=== PATIENT | female | born 1980 | race Caucasian/White ===

== ENCOUNTER 2017-08-31 10:37 | Emergency (ER) | payer OTHER ==
[~2017-08-31] VITALS: Ht 165.1 cm; Wt 115.9 kg
[2017-08-31] MEDS ORDERED: DIVA500T35 PO (11:35)
[2017-08-31] MEDS ORDERED: SERT50TA12 PO (11:35)
[2017-08-31] MEDS ORDERED: GABA-531 PO (11:35)
[2017-08-31 12:20] LABS: BASOPHILS % (AUTO) 0.5 % (0.0-2.0); EOSINOPHILS % (AUTO) 1.9 % (1.0-6.0); HEMOGLOBIN 13.6 g/dL (12.0-16.0); LYMPHOCYTES % (AUTO) 39.4 % (22.0-44.0); MEAN CORPUSCULAR HEMOGLOBIN 29.6 pg (26.0-34.0); MEAN CORPUSCULAR VOLUME 85 fL (80-100); MONOCYTES # (AUTO) 0.6 K/uL (0.1-1.0); MONOCYTES % (AUTO) 7.6 % (2.0-9.0); NEUTROPHILS # (AUTO) 3.9 K/uL (1.8-7.7); NEUTROPHILS % (AUTO) 50.6 % (40.0-70.0); PLATELET COUNT (AUTO) 245 K/uL (150-450); RED CELL DISTRIBUTION WIDTH 13.4 % (11.5-14.5)
[2017-08-31 12:47] LABS: ANION GAP 7 mmol/L (8-16); CALCIUM, TOTAL 8.3 mg/dL (8.8-10.5); CARBON DIOXIDE 26 mmol/L (22-29); CHLORIDE 104 mmol/L (98-107); CREATININE 0.66 mg/dL (0.60-1.30); GLOMERULAR FILTR. RATE CALC > 60 mL/min (>60); GLUCOSE,RANDOM 85 mg/dL (70-110); POTASSIUM 3.8 mmol/L (3.5-5.1); SODIUM SERUM 137 mmol/L (136-145); UREA NITROGEN, BLOOD 14 mg/dL (7-18)
[2017-08-31 12:53] LABS: ALANINE AMINOTRANSFERASE 19 U/L (12-78); ALBUMIN 3.2 g/dL (3.4-5.0); ALKALINE PHOSPHATASE 60 U/L (46-116); ASPARTATE AMINOTRANSFERASE 12 U/L (15-37); BILIRUBIN,TOTAL 0.3 mg/dL (0.1-1.0); TOTAL PROTEIN, SERUM 6.9 g/dL (6.4-8.2)
[2017-08-31] MEDS ORDERED: MECLIZINE HCL 25 MG TABLET PO ONE (15:00)
[2017-08-31 15:39] LABS: CREATINE KINASE MB 0.7 ng/mL (0-5); CREATINE KINASE, TOTAL 91 U/L (26-192)
[2017-08-31 15:41] LABS: APPEARANCE,URINE CLEAR (CLEAR); BILIRUBIN,URINE NEGATIVE (NEGATIVE); GLUCOSE, URINE (UA) NEGATIVE (NEGATIVE); KETONES,URINE NEGATIVE (NEGATIVE); LEUKOCYTE ESTERASE ,URINE NEGATIVE (NEGATIVE); NITRATE,URINE NEGATIVE (NEGATIVE); OCCULT BLOOD,URINE NEGATIVE (NEGATIVE); PH,URINE 7.5 (5.0-8.0); PROTEIN,URINE NEGATIVE (NEGATIVE); UROBILINOGEN,URINE 0.2 mg/dL (<=1.0)
[2017-08-31 17:38] VITALS: BP 105/64
== END 2017-08-31 17:49 | disposition home or self-care (01) ==
LOC: EMS 10:40
DX: R42 Dizziness and giddiness (principal); R51 Headache; M79.89 Other specified soft tissue disorders; E78.00 Pure hypercholesterolemia, unspecified; F17.210 Nicotine dependence, cigarettes, uncomplicated
CPT/HCPCS: 70450; 93005; 99285

== ENCOUNTER 2021-02-25 13:18 | Inpatient (IN) | payer MEDICAID, OTHER ==
[~2021-02-25] VITALS: Ht 165.1 cm; Wt 107.0 kg
[~2021-02-25 13:18] MED LIST: DIVA-112 PO; GABA-1181 PO; SERT-158 PO
[2021-02-25 14:18] LABS: BASOPHILS % (AUTO) 0.6 % (0.0-2.0); EOSINOPHILS % (AUTO) 0.7 % (1.0-6.0); HEMATOCRIT 39.1 % (36-46); HEMOGLOBIN 13.1 g/dL (12.0-16.0); LYMPHOCYTES # (AUTO) 2.5 K/uL (1.0-4.8); LYMPHOCYTES % (AUTO) 29.4 % (22.0-44.0); MEAN CORPUSCULAR HEMOGLOBIN 28.4 pg (26.0-34.0); MEAN CORPUSCULAR HGB CONC 33.6 G/dL (31.0-37.0); MEAN CORPUSCULAR VOLUME 85 fL (80-100); MONOCYTES # (AUTO) 0.7 K/uL (0.1-1.0); MONOCYTES % (AUTO) 7.9 % (2.0-9.0); NEUTROPHILS # (AUTO) 5.1 K/uL (1.8-7.7); NEUTROPHILS % (AUTO) 61.4 % (40.0-70.0); PLATELET COUNT (AUTO) 388 K/uL (150-450); RED BLOOD CELL COUNT(AUTO) 4.63 MIL/uL (4.00-5.20); RED CELL DISTRIBUTION WIDTH 13.5 % (11.5-14.5)
[2021-02-25 14:30] LABS: ANION GAP 10 mmol/L (8-16); CALCIUM, TOTAL 9.4 mg/dL (8.8-10.5); CARBON DIOXIDE 24 mmol/L (22-29); CHLORIDE 105 mmol/L (98-107); CREATININE 0.78 mg/dL (0.60-1.30); GLOMERULAR FILTR. RATE CALC > 60 mL/min (>60); GLUCOSE,RANDOM 103 mg/dL (70-110); POTASSIUM 3.4 mmol/L (3.5-5.1); SODIUM SERUM 139 mmol/L (136-145); UREA NITROGEN, BLOOD 15 mg/dL (7-18)
[2021-02-25 14:44] LABS: ALANINE AMINOTRANSFERASE 19 U/L (12-78); ALBUMIN 3.7 g/dL (3.4-5.0); ALKALINE PHOSPHATASE 78 U/L (46-116); ASPARTATE AMINOTRANSFERASE 19 U/L (15-37); BILIRUBIN,TOTAL 0.5 mg/dL (0.1-1.0); HCG,QUANTITATIVE 1 mIU/mL (0-6); TOTAL PROTEIN, SERUM 7.4 g/dL (6.4-8.2)
[2021-02-25 14:57] LABS: VALPROIC ACID < 3 mcg/mL (50-100)
[2021-02-25 15:32] LABS: COVID AG,FIA SOURCE NASOPHARYNGEAL
[2021-02-25] MEDS ORDERED: POTASSIUM CHLORIDE 20 MEQ ER TABLET PO ONE (18:45)
[2021-02-25] MEDS ORDERED: HALOPERIDOL 5 MG TABLET PO PRN (19:00)
[2021-02-26 00:05] VITALS: BP 115/70
[2021-02-26] MEDS: LORazepam 2 MG TABLET PO PRN ×2 (03:10→08:23)
[2021-02-26] MEDS ORDERED: INFLUENZA VIRUS VACCINE QVS 2021-22 (6MO+)/PF 60 MCG/0.5 ML SYRINGE IM. ONE (03:15)
[2021-02-26 06:49] LABS: CHOL/HDL RATIO 3.1 (3.9-5.7)
[2021-02-26 08:39] VITALS: BP 121/85
[2021-02-26] MEDS ORDERED: MAGNESIUM HYDROXIDE SUSPENSION 30 ML UDCUP PO PRN (10:45)
[2021-02-26] MEDS ORDERED: IBUPROFEN 400 MG TABLET PO PRN (10:45)
[2021-02-26] MEDS ORDERED: ACETAMINOPHEN 325 MG TABLET PO PRN (10:45)
[2021-02-26] MEDS ORDERED: NICOTINE 14 MG/24 HOUR PATCH TD PRN (10:45)
[2021-02-26] MEDS ORDERED: CloNIDine HCL 0.1 MG TABLET PO PRN (10:45)
[2021-02-26] MEDS ORDERED: DOCUSATE SODIUM 100 MG CAPSULE PO PRN (10:45)
[2021-02-26] MEDS ORDERED: LOPERAMIDE HCL 2 MG CAPSULE PO PRN (10:45)
[2021-02-26] MEDS ORDERED: GuaiFENesin/D-METHORPHAN [SUGAR-FREE] 200-20MG/10 ML SYRUP UDCUP PO PRN (10:45)
[2021-02-26] MEDS ORDERED: PETROLATUM,WHITE 28 GM JELLY TP PRN (10:45)
[2021-02-26] MEDS ORDERED: MAG HYDROX/AL HYDROX/SIMETH ES 30 ML SUSPENSION UDCUP PO PRN (10:45)
[2021-02-26] MEDS ORDERED: ALBUTEROL SULFATE HFA 90 MCG/PUFF 8 GM INHALER IH PRN (10:45)
[2021-02-26] MEDS ORDERED: ONDANSETRON HCL 4 MG TABLET PO PRN (10:45)
[2021-02-26] MEDS: DIVALPROEX SODIUM 500 MG DR TABLET PO SCH (12:21)
[2021-02-26] MEDS: GABAPENTIN 300 MG CAPSULE PO SCH (12:21)
[2021-02-26 13:51] LABS: BILIRUBIN,URINE NEGATIVE (NEGATIVE); GLUCOSE, URINE (UA) NEGATIVE (NEGATIVE); KETONES,URINE NEGATIVE (NEGATIVE); LEUKOCYTE ESTERASE ,URINE NEGATIVE (NEGATIVE); NITRATE,URINE NEGATIVE (NEGATIVE); PH,URINE 7.5 (5.0-8.0); PROTEIN,URINE NEGATIVE (NEGATIVE); UROBILINOGEN,URINE 0.2 mg/dL (<=1.0)
[2021-02-26 13:57] LABS: AMPHET/METH SCREEN,URINE POSITIVE (NEGATIVE); BARBITURATE SCREEN, URINE NEGATIVE (NEGATIVE); BENZODIAZEPINES SCREEN,URINE NEGATIVE (NEGATIVE); CANNABINOID SCREEN,URINE NEGATIVE (NEGATIVE); COCAINE SCREEN,URINE NEGATIVE (NEGATIVE); METHADONE SCREEN, URINE NEGATIVE (NEGATIVE); OPIATE SCREEN,URINE NEGATIVE (NEGATIVE); PHENCYCLIDINE SCREEN,URINE NEGATIVE (NEGATIVE)
[2021-02-26 14:02] LABS: APPEARANCE,URINE HAZY (CLEAR); OCCULT BLOOD,URINE SMALL (NEGATIVE)
[2021-02-26 14:04] LABS: BACTERIA,URINE None Seen /HPF (None Seen); SQUAMOUS EPITHELIAL CELL,UR Moderate /LPF (None Seen); WBC,URINE None Seen /HPF (0-5)
[2021-02-26 16:08] VITALS: BP 99/69
[2021-02-26] MEDS: ZOLPIDEM TARTRATE 10 MG TABLET PO PRN (20:47)
[2021-02-27 08:00] VITALS: BP 99/69
[2021-02-27] MEDS: GABAPENTIN 300 MG CAPSULE PO SCH (08:01)
[2021-02-27] MEDS: DIVALPROEX SODIUM 500 MG DR TABLET PO SCH ×2 (08:01→20:02)
[2021-02-27] MEDS: LORazepam 2 MG TABLET PO PRN (08:14)
[2021-02-27 16:00] VITALS: BP 107/61
[2021-02-28] MEDS: DIVALPROEX SODIUM 500 MG DR TABLET PO SCH ×2 (08:22→20:33)
[2021-02-28] MEDS: GABAPENTIN 300 MG CAPSULE PO SCH (08:23)
[2021-02-28] MEDS: LORazepam 2 MG TABLET PO PRN ×2 (08:24→16:50)
[2021-02-28 08:30] VITALS: BP 101/68
[2021-02-28 16:39] VITALS: BP 101/68
[2021-02-28] MEDS: ZOLPIDEM TARTRATE 10 MG TABLET PO PRN (20:33)
[2021-03-01] MEDS: DIVALPROEX SODIUM 500 MG DR TABLET PO SCH ×2 (08:23→20:45)
[2021-03-01] MEDS: GABAPENTIN 300 MG CAPSULE PO SCH (08:23)
[2021-03-01] MEDS: LORazepam 2 MG TABLET PO PRN ×2 (08:24→16:18)
[2021-03-01 08:41] VITALS: BP 118/73
[2021-03-01 16:00] VITALS: BP 124/80
[2021-03-01] MEDS: ZOLPIDEM TARTRATE 10 MG TABLET PO PRN (20:45)
[2021-03-01] MEDS ORDERED: PRAZOSIN HCL 1 MG CAPSULE PO SCH (21:00)
[2021-03-02] MEDS: GABAPENTIN 300 MG CAPSULE PO SCH (08:21)
[2021-03-02] MEDS: DIVALPROEX SODIUM 500 MG DR TABLET PO SCH (08:22)
[2021-03-02] MEDS: LORazepam 2 MG TABLET PO PRN (08:58)
[2021-03-02 10:46] VITALS: BP 111/61
[2021-03-02] MEDS ORDERED: PRAZ1 PO (11:39)
== END 2021-03-02 13:20 | disposition home or self-care (01) | DRG 753 ==
LOC: EMS 13:18 → 3EI 20:00 → EMS 02-26 01:24 → UNDOADMIN 02-26 01:38 → 3EI 02-26 01:38
PROVIDERS: ADMIT Psychiatry & Neurology Psychiatry; ATTEND Psychiatry & Neurology Psychiatry
DX: F31.4 Bipolar disorder, current episode depressed, severe, without psychotic features (principal); R45.851 Suicidal ideations; E66.9 Obesity, unspecified; E78.00 Pure hypercholesterolemia, unspecified; E78.5 Hyperlipidemia, unspecified; E87.6 Hypokalemia; F10.10 Alcohol abuse, uncomplicated; F15.10 Other stimulant abuse, uncomplicated; F43.12 Post-traumatic stress disorder, chronic; Z20.822 Contact with and (suspected) exposure to COVID-19; F41.9 Anxiety disorder, unspecified; F19.10 Other psychoactive substance abuse, uncomplicated; Z79.899 Other long term (current) drug therapy; Z87.891 Personal history of nicotine dependence; Z91.410 Personal history of adult physical and sexual abuse; Z91.51 Personal history of suicidal behavior; Z68.39 Body mass index [BMI] 39.0-39.9, adult; Z71.41 Alcohol abuse counseling and surveillance of alcoholic; Z71.89 Other specified counseling; Z23 Encounter for immunization
CPT/HCPCS: 80053; 80061; 80164; 80307; 81001; 84132; 84702; 85025; 90686; 99285; G0480